=== PATIENT | male | born 2000 | race African-American/Black ===

== ENCOUNTER 2019-08-09 19:52 | Emergency (ER) | payer SELFPAY ==
[~2019-08-09] VITALS: Ht 177.8 cm; Wt 82.0 kg
[2019-08-09] MEDS ORDERED: ONDANSETRON HCL 4MG/2ML INJ IV STA (20:38)
[2019-08-09] MEDS ORDERED: KETOROLAC 30MG/ML VIAL IV STA (20:38)
[2019-08-09] MEDS ORDERED: ETOMIDATE 2MG/ML 10ML VIAL IV ONE (20:45)
[2019-08-09] MEDS ORDERED: ONDANSETRON HCL 4MG/2ML INJ ONE (23:27)
[2019-08-10 02:38] VITALS: BP 124/67
== END 2019-08-10 02:39 | disposition home or self-care (01) ==
LOC: ER 19:52
DX: S43.004A Unspecified dislocation of right shoulder joint, initial encounter (principal); W01.0XXA Fall on same level from slipping, tripping and stumbling without subsequent striking against object, initial encounter; Y93.9 Activity, unspecified; Y92.9 Unspecified place or not applicable
CPT/HCPCS: 23650; 73030; 96374; 96375; 99152; 99285; J1885; J2405; J3490; Z7610; L3670

== ENCOUNTER 2020-02-26 12:26 | Emergency (ER) | payer MEDICAID ==
[~2020-02-26] VITALS: Ht 177.8 cm; Wt 90.0 kg
[2020-02-26] MEDS ORDERED: ONDANSETRON HCL 4MG/2ML INJ IV STA (14:12)
[2020-02-26] MEDS ORDERED: MORPHINE SULFATE 4 MG/ML CPJ (NOT FOR IM USE) IV STA (14:12)
[2020-02-26] MEDS ORDERED: SODIUM CHLORIDE 0.9% 1,000 ML IV ONE (14:12)
[2020-02-26] MEDS ORDERED: ETOMIDATE 2MG/ML 10ML VIAL IV ONE (15:00)
[2020-02-26 17:25] VITALS: BP 134/80
== END 2020-02-26 17:34 | disposition home or self-care (01) ==
LOC: ER 12:26
DX: M24.411 Recurrent dislocation, right shoulder (principal)
CPT/HCPCS: 23650; 73030; 96374; 96375; 99152; 99285; J2270; J2405; J3490; J7030; L3670

== ENCOUNTER 2022-11-29 23:25 | Emergency (ER) | payer SELFPAY ==
[~2022-11-29] VITALS: Ht 175.3 cm; Wt 90.1 kg
[2022-11-29 23:31] VITALS: BP 129/86
[2022-11-30 00:04] LABS: CHLORIDE 102 mEq/L (98-107)
[2022-11-30 00:22] LABS: BASOPHILS % 0.3 % (0.0-2.0); EOSINOPHILS % 1.9 % (0.0-5.0); HEMATOCRIT. 43.3 % (42.0-52.0); HEMOGLOBIN. 15.3 g/dL (14.0-18.0); LYMPHOCYTES % 23.7 % (20.0-50.0); MEAN CORPUSCULAR HEMOGLOBIN 28.7 pg (28.0-32.0); MEAN PLATELET VOLUME 8.2 fl (7.4-10.4); MONOCYTES % 7.2 % (2.0-8.0); NEUTROPHILS % 66.9 % (40.0-76.0); PLATELET 252 x1000/uL (130-400); RED BLOOD CELL COUNT 5.34 mill/uL (4.7-6.1); RED CELL DISTRIBUTION WIDTH 14.8 % (11.6-14.6)
[2022-11-30] MEDS ORDERED: PROT40 MT (03:00)
== END 2022-11-30 03:07 | disposition home or self-care (01) ==
LOC: ER 23:25
DX: R10.10 Upper abdominal pain, unspecified (principal); R11.2 Nausea with vomiting, unspecified
CPT/HCPCS: 36415; 80053; 85025; 99283